=== PATIENT | male | born 1940 | race Caucasian/White ===

== ENCOUNTER → 2024-03-26 | Outpatient (CLI) | payer MEDICARE, OTHER ==
[~2024-03-26] MED LIST: ALFU10 PO; Benicar5 MG PO; CELE200 PO; CYAN500 PO; CYCL10 PO; DICLO GEL1 EACH TOP; Excedrin Extra1 EACH PO; Fruity C250 MG PO; METF500C PO; Multivitamin1 EAC1 PO; OMEPRAZOLE MAGN20 MG PO; Simvastatin20 MG PO
== END ==
LOC: LAB SHORT 07:48 → LAB 07:48
DX: B35.1 Tinea unguium (principal)
CPT/HCPCS: 88305; 88312